=== PATIENT | male | born 1990 | race Caucasian/White ===

== ENCOUNTER 2016-12-10 19:24 | Emergency (ER) | payer OTHER ==
[2016-12-10 19:29] VITALS: RESP 18; O2SAT 96
--- NOTE | 2016-12-10 19:35 | EDPHY ---
H & P Stated Complaint: rught thumb lac- cut on knife 15 minutes ago Time Seen by Provider: 12/10/16 19:34 HPI/ROS: Chief Complaint: Laceration to right thumb HPI: Patient is left hand dominant male who presents to the ED with a laceration he sustained to the tip of his right from while working. Patient was working with a sharp knife. The patient cut through the distal portion of his nail bed in a transverse fashion. The patient did have a fair amount of bleeding which has been controlled with direct pressure. The patient reports his tetanus shot is up-to-date. He has moderate incisional pain. REVIEW OF SYSTEMS: Neuro: no headache, numbness, weakness Musculoskeletal: as above Skin: no abrasion or lacerations Source: Patient Exam Limitations: No limitations - Personal History Current Tetanus/Diphtheria Vaccine: Yes Current Tetanus Diphtheria and Acellular Pertussis (TDAP): Yes Tetanus Vaccine Date: 2011 - Medical/Surgical History Hx Asthma: No Hx Chronic Respiratory Disease: No Hx Diabetes: No Hx Cardiac Disease: No Hx Renal Disease: No Hx Cirrhosis: No Hx Alcoholism: No Hx HIV/AIDS: No Hx Splenectomy or Spleen Trauma: No Other PMH: pmh- kidney stones. psh- Left ACL - Social History Smoking Status: Heavy smoker - Physical Exam Exam: General Appearance: Alert, no distress Skin: Laceration noted to the right thumb Extremities: 2 cm semi circumferential laceration noted to the distal aspect of the right thumb, normal capillary refill Neurological: Sensation intact to light touch throughout the right upper extremity Constitutional: Initial Vital Signs Temperature (C) 36.8 C 12/10/16 19:26 Heart Rate 98 12/10/16 19:26 Respiratory Rate 18 12/10/16 19:26 Blood Pressure 138/86 H 12/10/16 19:26 O2 Sat (%) 96 12/10/16 19:26 O2 Delivery Mode Room Air Allergies/Adverse Reactions: erythromycin base Allergy (Verified 12/10/16 19:30) Unknown Home Medications: Medication Instructions Recorded NK [No Known Home Meds] 12/10/16 Medical Decision Making Procedures: Procedure: Laceration repair with skin glue Verbal consent was obtained from the patient. The 2 cm laceration on the right thumb. The wound was irrigated and explored to its base with a gloved finger. There were no deep structures involved. No tendon injury was identified. The wound was repaired with tissue adhesive. The procedure was performed by myself. ED Course/Re-evaluation: The patient's laceration was repaired using Dermabond. He will be discharged home with customary aftercare instructions. The patient did undergo a digital block prior to dermabond and irrigation. Departure - Departure Disposition: Home, Routine, Self-Care Clinical Impression: Thumb laceration Qualifiers: Encounter type: initial encounter Damage to nail status: without damage Foreign body presence: without foreign body Laterality: right Qualified Code(s) : S61.011A - Laceration without foreign body of right thumb without damage to nail, initial encounter Condition: Good Instructions: Laceration (ED), Skin Adhesive Care (ED) Additional Instructions: 1. Return to the emergency department for any bleeding, redness, pain or fever Referrals: NONE *PRIMARY CARE P,. [Primary Care Provider] - As per Instructions
[2016-12-10] MEDS ORDERED: SKIN ADHESIVE (DERMABOND) 1 EACH TP ONE (20:05)
[2016-12-10 20:40] VITALS: BP 123/73; PULSE 70; TEMP 97.9
== END 2016-12-10 20:39 | disposition home or self-care (01) ==
PROC: 0HQFXZZ Repair Right Hand Skin, External Approach (ICD-10-PCS; principal; 2016-12-10)
DX: S61.011A Laceration without foreign body of right thumb without damage to nail, initial encounter (principal); F17.200 Nicotine dependence, unspecified, uncomplicated; W26.0XXA Contact with knife, initial encounter; Y92.69 Other specified industrial and construction area as the place of occurrence of the external cause; Y99.0 Civilian activity done for income or pay; Y93.89 Activity, other specified

== ENCOUNTER 2016-12-12 18:03 | Emergency (ER) | payer OTHER ==
[2016-12-12 18:17] VITALS: TEMP 98.4
[2016-12-12] MEDS ORDERED: SKIN ADHESIVE (DERMABOND) 1 EACH TP ONE (18:40)
--- NOTE | 2016-12-12 18:42 | EDPHY ---
H & P Stated Complaint: lac repair r thumb sunday/hit on counter/bleeding Time Seen by Provider: 12/12/16 18:25 HPI/ROS: CHIEF COMPLAINT: Thumb laceration, wound opened HISTORY OF PRESENT ILLNESS: Patient returns with complaints of accidentally opening his thumb laceration. This is on the right thumb. It occurred 2 days ago. This was while at work and using his shift night. He was seen here and treated with Dermabond. He was doing well until today. He pulled his hand out of his pocket when the wound open. Minimal bleeding noted. Minimal pain noted. No signs of infection discussed. No trauma or injury otherwise. No other associated complaints or modifying factors. He is left-hand dominant. TIME OF INJURY: December 10, 2016 TETANUS STATUS: Up-to-date REVIEW OF SYSTEMS: Ten systems reviewed and are negative unless otherwise noted in the HPI EXAMINATION General Appearance: Alert, no distress Head: normocephalic, atraumatic Cardiovascular: Pulses normal throughout. Brisk cap refill Neurological: A&O, sensory symmetric, strength symmetric Skin: Warm and dry, no rash. There is laceration of the right thumb including the distal portion of the nail bed. There is partial opening on the nail bed portion of the wound. There is minimal bleeding noted. No signs of infection. No foreign body. Neurovascular intact distal to the injury. Extremities: Nontender, no pedal edema DIFFERENTIAL DIAGNOSES: Including but not limited to thumb laceration, thumb laceration with complication, thumb laceration with delayed healing MDM: 6:50 p.m. Right distal thumb laceration 2 days ago. Patient vomited today and there is a small separation of the glue. No signs of infection. There is mild bleeding noted. I have applied a 2nd layer due to this. I will put him on prophylaxis of Keflex and have him return in 2 days for wound check. He is to follow up here or with hand surgeon for definitive care. He is comfortable this plan. He will be discharged home in stable condition PROCEDURE: Laceration repair Consent: Verbal Location: Right thumb Description: Wound was prepped with chlorhexidine. Dermabond was used to close the dorsal portion of the laceration involving the distal portion of the nail bed. There is no foreign body prior to applying the city driver of on. Tolerated well. Neurovascular intact post procedure. Wound care discussed. SUTURE STAPLE REMOVAL: None. Dermabond applied ED Precautions: Worsening pain. Erythema, edema, cyanosis, pallor, paresthesia or anesthesia. SUPERVISION: This patient was independently evaluated without direct examination by the attending physician. Case was discussed with attending physician. Source: Patient Exam Limitations: No limitations - Personal History Current Tetanus/Diphtheria Vaccine: Yes Tetanus Vaccine Date: 2011 - Medical/Surgical History Hx Asthma: No Hx Chronic Respiratory Disease: No Hx Diabetes: No Hx Cardiac Disease: No Hx Renal Disease: No Hx Cirrhosis: No Hx Alcoholism: No Hx HIV/AIDS: No Hx Splenectomy or Spleen Trauma: No Other PMH: pmh- kidney stones. psh- Left ACL - Social History Smoking Status: Heavy smoker Constitutional: Initial Vital Signs Temperature (C) 98.4 F 12/12/16 18:15 Heart Rate 76 12/12/16 18:15 Respiratory Rate 17 12/12/16 18:15 Blood Pressure 146/96 H 12/12/16 18:15 O2 Sat (%) 96 12/12/16 18:15 O2 Delivery Mode Room Air Allergies/Adverse Reactions: erythromycin base Allergy (Verified 12/12/16 18:15) Unknown Home Medications: Medication Instructions Recorded NK [No Known Home Meds] 12/10/16 Departure - Departure Disposition: Home, Routine, Self-Care Clinical Impression: Thumb laceration Qualifiers: Encounter type: subsequent encounter Damage to nail status: with damage Foreign body presence: without foreign body Laterality: right Qualified Code(s) : S61.111D - Laceration without foreign body of right thumb with damage to nail , subsequent encounter Condition: Good Instructions: Skin Adhesive Care (ED) Referrals: NONE *PRIMARY CARE P,. [Primary Care Provider] - As per Instructions Noe Gilman MD [Medical Doctor] - As per Instructions Stand Alone Forms: Work Comp Follow Up
[2016-12-12 19:27] VITALS: BP 120/74; PULSE 73; RESP 16; O2SAT 94
== END 2016-12-12 19:26 | disposition home or self-care (01) ==
PROC: 0HQFXZZ Repair Right Hand Skin, External Approach (ICD-10-PCS; principal; 2016-12-12)
DX: S61.111D Laceration without foreign body of right thumb with damage to nail, subsequent encounter (principal); F17.200 Nicotine dependence, unspecified, uncomplicated; X58.XXXD Exposure to other specified factors, subsequent encounter